=== PATIENT | male | born 1945 | race Caucasian/White ===

== ENCOUNTER 2020-01-19 22:08 | Emergency (ER) | payer OTHER, SELFPAY ==
--- NOTE | ~2020-01-19 | CT_ITS ---
EXAMINATION: CT brain wo con INDICATION: Unsteady gait COMPARISON: None TECHNIQUE: Standard unenhanced head CT. The dose-length product (DLP) was 681.00 mGy-cm. The mA was a djusted according to patient size. Iterative reconstruction technique was employed. FINDINGS: There is no acute intraparenchymal hemorrhage. No evidence of mass lesion. No evidence of a cute infarction. Encephalomalacia in the anterior aspect of the left temporal lobe is consistent with prior infarction. There is mild periventricular and subcortical hypodensity probably related to smal l vessel ischemic disease. There is mild prominence of the sulci and ventricles related to cerebral a trophy. Intracranial calcified cerebral atherosclerosis is noted. There are no extra-axial collection s. There is no mass effect or midline shift. The orbits and soft tissues are unremarkable. The visua lized sinuses and mastoid air cells are well aerated. IMPRESSION: 1. Area of prior infarction in the anterior left temporal lobe without acute intracranial abnormality . 2. Age related findings. Reviewed, dictated and finalized at location A. IMPRESSION: 1. Area of prior infarction in the anterior left temporal lobe without acute in tracranial abnormality. 2. Age related findings.
--- NOTE | ~2020-01-19 | XR_ITS ---
EXAMINATION: XR chest 1V INDICATION: Weakness, unsteady gait TECHNIQUE: AP view of the chest is obtained. COMPARISON: None available FINDINGS: There are minimal airspace opacities of the lung bases. No pleural effusion or pneumothorax is identified. The cardiomediastinal silhouette is normal for technique. IMPRESSION: 1. Mild bibasilar atelectasis. Reviewed, dictated and finalized at location A.
[2020-01-19 22:22] VITALS: BP 136/82; PULSE 75; RESP 20; TEMP 36.6; O2SAT 97
--- NOTE | 2020-01-19 22:33 | ECG_ITS ---
Measurements Intervals [place] Rate: 81 P: MN: 0 QRS: -2 QRSD: 106 T: -19 QT: 343 QTc: 400 Interpretive Statements ATRIAL FIBRILLATION RSR' IN V1 OR V2, CONSIDER RIGHT VENTRICULAR HYPERTROPHY OR RIGHT VCD NONSPECIFIC T-WAVE ABNORMALITY- DIFFUSE LEADS ABNORMAL ECG Electronically Signed On 01-20-2020 8:25:12 CDT by Braden Wiggins D.O.
[2020-01-19 22:47] LABS: Basophils Percent Auto 0.4 % (0.2-1.2); Eosinophils Percent Auto 0.5 % (0-4.4); Hematocrit 42.8 % (42.0-52.0); Immature Granulocyte Absolute 0.01 K/mm3 (0.00-0.031); Immature Granulocyte Percent A 0.2 % (0-0.5); Lymphocytes Absolute Auto 1.41 K/mm3 (0.9-3.2); Lymphocytes Percent Auto 25.7 % (18.3-44.2); Mean Corpuscular Hemoglobin 32.7 pg (26-34); Mean Corpuscular Volume 93.2 fl (80-100); Mean Platelet Volume 9.4 fl (7.4-10.4); Monocytes Absolute Auto 0.4 K/mm3 (0.1-0.6); Monocytes Percent Auto 6.6 % (2.6-8.5); Neutrophils Absolute Auto 3.7 K/mm3 (1.3-6.7); Neutrophils Percent Auto 66.6 % (45.5-73.1); Platelet Count Result 174 k/mm3 (150-375); Red Blood Count 4.59 M/mm3 (4.6-6.20); Red Cell Distribution Width 13.2 % (11.5-14.5); White Blood Count 5.5 K/mm3 (4.5-10.0)
[2020-01-19 22:55] LABS: INR 2.3; Prothrombin Time 24.4 Seconds (11.1-14.7)
[2020-01-19 22:56] LABS: Anion Gap 11 mmol/L (8-16); Blood Urea Nitrogen 14 mg/dL (9-20); Calcium 8.9 mg/dL (8.4-10.2); Carbon Dioxide 22 mmol/L (22-30); Chloride 106 mmol/L (98-107); Estimated Glomerular Filt Rate > 60; Glucose 120 mg/dL (75-110); Partial Thromboplastin Time 37.6 SECONDS (22.3-36.8); Potassium 3.6 mmol/L (3.4-5.0); Sodium 139 mmol/L (137-145)
[2020-01-19 23:08] LABS: Troponin I < 0.012 ng/mL (0.000-0.034)
--- NOTE | 2020-01-19 23:34 | PC.NURSE ---
called lab to add on Ethanol
[2020-01-19 23:46] VITALS: BP 110/46; PULSE 87; RESP 18; O2SAT 97
[2020-01-19 23:50] LABS: Ethanol 140 mg/dL (<10)
--- NOTE | 2020-01-20 01:00 | PC.NURSE ---
pt ambulated w/ no difficulty at this time.
--- NOTE | 2020-01-20 01:00 | ED.GENADULT ---
HPI - General Adult General Chief complaint: Weakness Stated complaint: weakness, unsteadiness, etoh Time Seen by Provider: 01/19/20 23:13 History of Present Illness HPI narrative: Patient is a 74-year-old male who presents the ER by ambulance after friends became concerned that he may be having a stroke. Patient came into town from the [facility]. Reports that during his drive over here he had filled a glass with a large vodka mixed drink. He then proceeded to drink that on the way over. He then had some drinks at dinner. All dinner has some difficulty going from sitting to standing. Because patient has history of CVA friends became concerned that may be he was having a stroke. Patient has some mild slurred speech due to some intoxication. He has no complaints of numbness or tingling. No complaints of focal weakness. Awake alert and oriented x3 at this time. Stroke scale negative for EMS. Related Data Allergies Allergy/AdvReac Type Severity Reaction Status Date / Time No Known Allergies Allergy Verified 01/19/20 22:37 Review of Systems Review of Systems: All systems reviewed & are unremarkable except as noted in HPI and below Constitutional: Constitutional: Denies chills, Denies fever(s) and Denies weakness Cardiovascular: Cardiovascular: Denies chest pain and Denies radiating jaw, neck or arm pain Respiratory: Respiratory: Denies cough, Denies dyspnea and Denies wheezing Gastrointestinal: Gastrointestinal: Denies abdominal pain, Denies nausea and Denies vomiting Neurologic: Denies dizziness, Denies focal weakness, Denies numbness and Reports weakness (Difficulty walking) [facility], [facility] Past Medical History Medical History (Updated 01/20/20 @ 01:08 by Jim Keith MD) Atrial fibrillation CVA (cerebral vascular accident) High cholesterol Social History Social History (Updated 01/20/20 @ 01:02 by Jim Keith MD) Alcohol intake: current Exam Narrative: Exam Narrative: GENERAL: Intoxicated-appearing, well-nourished, and in no acute distress. HEAD: Normocephalic, atraumatic. EYES: PERRL and EOMI. ENT: Mucous membranes moist. CHEST: Clear to auscultation. No respiratory distress. HEART: Irregular regular rate and rhythm. Normal peripheral pulses. ABDOMEN: Soft, nontender, nondistended, normal active bowel sounds. EXTREMITIES: Normal range of motion. No edema. SKIN: Warm, dry, no rash. NEURO: Cranial nerves II through XII intact, no upper or lower extremity drift, mild slurred speech likely related to intoxication, patient able to ambulate with a negative Romberg. Alert and oriented x3. PSYCH: Normal mood and affect. Course Course Emergency Course: Patient moving around the ER without issue. At neurologic baseline per friends. Suspect patient was intoxicated and caused the symptoms earlier in the evening. Vital Signs Vital signs: Vital Signs Temperature 97.9 F 01/19/20 22:22 Pulse Rate 75 01/19/20 22:22 Respiratory Rate 20 01/19/20 22:22 Blood Pressure 136/82 01/19/20 22:22 Pulse Oximetry 97 01/19/20 22:22 Temperature 97.9 F 01/19/20 22:22 Pulse Rate 87 01/19/20 23:46 Respiratory Rate 18 01/19/20 23:46 Blood Pressure 110/46 L 01/19/20 23:46 Pulse Oximetry 97 01/19/20 23:46 Medical Decision Making Vital Signs Vital Signs: Vital Signs Temperature 97.9 F 01/19/20 22:22 Pulse Rate 75 01/19/20 22:22 Respiratory Rate 20 01/19/20 22:22 Blood Pressure 136/82 01/19/20 22:22 Pulse Oximetry 97 01/19/20 22:22 Temperature 97.9 F 01/19/20 22:22 Pulse Rate 87 01/19/20 23:46 Respiratory Rate 18 01/19/20 23:46 Blood Pressure 110/46 L 01/19/20 23:46 Pulse Oximetry 97 01/19/20 23:46 Lab Data Result diagrams: 01/19/20 22:39 01/19/20 22:39 Labs: Lab Results 01/19/20 01/19/20 01/19/20 Range/Units 22:39 22:39 22:39 WBC 5.5 (4.5-10.0) K/mm3 RBC 4.59 L (4.6-6.20) M/mm
[2020-01-20 01:10] VITALS: BP 120/72; PULSE 80; RESP 19; O2SAT 99
[2020-01-20 01:15] VITALS: BP 120/72; PULSE 80; RESP 19; O2SAT 99
== END 2020-01-20 01:17 | disposition home or self-care (01) ==
PROVIDERS: Emergency Provider Emergency Medicine
DX: F10.129 Alcohol abuse with intoxication, unspecified (principal); I48.91 Unspecified atrial fibrillation; Z86.73 Personal history of transient ischemic attack (TIA), and cerebral infarction without residual deficits; E78.00 Pure hypercholesterolemia, unspecified; Y90.6 Blood alcohol level of 120-199 mg/100 ml; R94.31 Abnormal electrocardiogram [ECG] [EKG]
CPT/HCPCS: 36415; 70450; 71045; 80048; 80307; 84484; 85025; 85610; 85730; 93005; 99284